=== PATIENT | female | born 1935 | race Caucasian/White ===

== ENCOUNTER 2017-05-14 16:22 | Inpatient (IN) ==
[2017-05-14] MEDS ORDERED: HYDROmorphone 2 MG/1 ML VIAL IV PRN ×2 (17:30→18:32)
[2017-05-14] MEDS ORDERED: SODIUM CHLORIDE 0.9% 500 ML IV STA (17:30)
[2017-05-14] MEDS ORDERED: ONDANSETRON 4 MG/2 ML VIAL IV STA (17:30)
[2017-05-14] MEDS ORDERED: ONDANSETRON 4 MG/2 ML VIAL ONE ×2 (17:42→18:05)
[2017-05-14] MEDS ORDERED: HYDROmorphone 2 MG/1 ML VIAL ONE (17:50)
[2017-05-14] MEDS: ONDANSETRON 4 MG/2 ML VIAL IV PRN ×2 (18:06→20:57)
[2017-05-14 18:12] LABS: Basophils % 0.2 % (0.0-0.8); Eosinophils # 0.1 10*3/uL (0.0-0.87); Eosinophils % 0.3 % (0.00-10.9); Hematocrit 42.3 VOL% (35.7-47.0); Hemoglobin 14.2 GM/DL (12.0-16.0); Immature Granulocytes % 0.6 %; Immature Granulocytes Absolute 0.09 #; Lymphocytes # 0.9 10*3/uL (1.4-4.0); Lymphocytes % 6.3 % (21.3-54.2); Mean Corpuscular HGB Conc 33.6 GM/DL (32-36); Mean Corpuscular Hemoglobin 31 PG (27-34); Mean Corpuscular Volume 91.8 FL (87-102); Mean Platelet Volume 10.1 FL (9.6-12.0); Monocytes # 0.4 10*3/uL (0.11-0.8); Monocytes % 2.6 % (1.7-12.7); Neutrophils # 12.9 10*3/uL (1.4-7.4); Platelet Count 202 T/CUMM (130-400); Red Blood Count 4.61 MC/CUMM (3.8-5.5); Red Cell Distribution Width 12.1 % (9.3-17.3); White Blood Count 14.3 T/CUMM (4-12)
[2017-05-14 18:18] LABS: Apearance,Urine CLEAR (Clear); Bilirubin,Urine Negative (Negative); Blood, Urine Small mg/dL (Negative); Glucose,Urine (UA) Negative (Negative); Ketones,Urine Negative (Negative); Mucus,Urine Occasional /LPF (Occasional); Nitrite,Urine Negative (Negative); Protein,Urine 30 MG/DL; RBC,Urine 2 /HPF (0-4); Urine Color Yellow (Yellow); Urine Specific Gravity 1.011 (1.001-1.035); Urine Urobilinogen < 2.0 EU/DL (0.2-1.0); WBC,Urine 2 /HPF (0-6)
[2017-05-14 18:23] LABS: PT Patient Result 10.7 SECS; Partial Thromboplastin Time 24.7 SECS (0-40)
[2017-05-14] MEDS ORDERED: SODIUM CHLORIDE 0.9% 1,000 ML IV SCH (18:30)
[2017-05-14 18:33] LABS: Albumin 3.6 G/DL (3.4-5.0); Bilirubin,Total 1.1 MG/DL (0.2-1.0); Calcium 8.3 MG/DL (8.5-10.1); Total Protein 6.6 G/DL (6.4-8.3)
[2017-05-14 18:34] LABS: Osmolality,Calculated 283.4 MOS/KG (273-304); Potassium 3.3 MMOL/L (3.5-5.1)
[2017-05-14] MEDS: SODIUM CHLOR 0.9% KCL 40 MEQ 40 MEQ/1,000 ML BAG IV SCH (20:56)
[2017-05-15 04:44] LABS: Basophils % 0.2 % (0.0-0.8); Eosinophils % 0.2 % (0.00-10.9); Hematocrit 41.5 VOL% (35.7-47.0); Hemoglobin 13.4 GM/DL (12.0-16.0); Immature Granulocytes % 0.6 %; Immature Granulocytes Absolute 0.08 #; Lymphocytes # 0.6 10*3/uL (1.4-4.0); Lymphocytes % 4.8 % (21.3-54.2); Mean Corpuscular HGB Conc 32.3 GM/DL (32-36); Mean Corpuscular Hemoglobin 30 PG (27-34); Mean Corpuscular Volume 93.3 FL (87-102); Mean Platelet Volume 10.2 FL (9.6-12.0); Monocytes # 0.3 10*3/uL (0.11-0.8); Monocytes % 2.6 % (1.7-12.7); Neutrophils # 11.9 10*3/uL (1.4-7.4); Neutrophils % 91.6 % (38.7-73.9); Platelet Count 203 T/CUMM (130-400); Red Blood Count 4.45 MC/CUMM (3.8-5.5); Red Cell Distribution Width 12.2 % (9.3-17.3)
[2017-05-15] MEDS: SODIUM CHLOR 0.9% KCL 40 MEQ 40 MEQ/1,000 ML BAG IV SCH ×3 (04:49→23:20)
[2017-05-15 05:09] LABS: Giant Platelets Few; Hypochromasia 1+; Lymphocytes 6 % (20-55); Platelet Estimate Adequate; Segmented Neutrophils 91 % (50-85); Total Cells Counted 100
[2017-05-15 05:15] LABS: Calcium 8.2 MG/DL (8.5-10.1); Potassium 4.7 MMOL/L (3.5-5.1); Risk Ratio 2.03
[2017-05-15] MEDS: PANTOPRAZOLE 40 MG TABLET PO SCH (08:13)
[2017-05-15] MEDS: ONDANSETRON 4 MG/2 ML VIAL IV PRN (11:07)
[2017-05-15] MEDS ORDERED: ACETAMINOPHEN 500 MG TABLET PO ONE (11:59)
[2017-05-15] MEDS ORDERED: ceFAZolin 1,000 MG VIAL ONE (14:09)
[2017-05-15] MEDS ORDERED: ceFAZolin 2,000 MG in PREMIX 1 EACH IV ONE (14:25)
[2017-05-15] MEDS ORDERED: ePHEDrine 50 MG/ML AMP ONE (15:55)
[2017-05-15] MEDS ORDERED: MIDAZOLAM 2 MG/2 ML VIAL ONE (15:57)
[2017-05-15] MEDS ORDERED: PROPOFOL 200 MG/20 ML VIAL IV ONE (15:57)
[2017-05-15] MEDS ORDERED: fentaNYL 100 MCG/2 ML VIAL ONE (15:57)
[2017-05-15] MEDS ORDERED: SODIUM CHLORIDE 0.9% 100 ML IV ONE (15:58)
[2017-05-15] MEDS ORDERED: LACTATED RINGERS 1,000 ML IV ONE (15:58)
[2017-05-15] MEDS ORDERED: SODIUM CHLORIDE 0.9% 250 ML IV ONE (15:58)
[2017-05-15] MEDS: MEROPENEM 1,000 MG in SYRINGE 1 EACH IV SCH (18:06)
[2017-05-15] MEDS: ACETAMINOPHEN 325 MG TABLET PO PRN (18:38)
[2017-05-16] MEDS: MEROPENEM 1,000 MG in SYRINGE 1 EACH IV SCH ×4 (00:34→23:31)
[2017-05-16 05:49] LABS: Basophils % 0.3 % (0.0-0.8); Eosinophils # 0.1 10*3/uL (0.0-0.87); Hematocrit 37.1 VOL% (35.7-47.0); Hemoglobin 12.2 GM/DL (12.0-16.0); Immature Granulocytes % 0.7 %; Immature Granulocytes Absolute 0.07 #; Lymphocytes # 0.6 10*3/uL (1.4-4.0); Lymphocytes % 6.1 % (21.3-54.2); Mean Corpuscular HGB Conc 32.9 GM/DL (32-36); Mean Corpuscular Hemoglobin 30 PG (27-34); Mean Corpuscular Volume 92.5 FL (87-102); Mean Platelet Volume 10.2 FL (9.6-12.0); Monocytes # 0.4 10*3/uL (0.11-0.8); Monocytes % 4.5 % (1.7-12.7); Neutrophils # 8.6 10*3/uL (1.4-7.4); Neutrophils % 87.4 % (38.7-73.9); Platelet Count 149 T/CUMM (130-400); Red Blood Count 4.01 MC/CUMM (3.8-5.5); Red Cell Distribution Width 12.3 % (9.3-17.3); White Blood Count 9.8 T/CUMM (4-12)
[2017-05-16 06:24] LABS: Calcium 8.1 MG/DL (8.5-10.1); Osmolality,Calculated 276.5 MOS/KG (273-304); Potassium 4.6 MMOL/L (3.5-5.1)
[2017-05-16] MEDS ORDERED: LEVOTHYROXINE 50 MCG TABLET PO SCH (07:00)
[2017-05-16] MEDS ORDERED: ASPIRIN EC 81 MG TABLET PO SCH (09:00)
[2017-05-16] MEDS ORDERED: THYROXINE 50 MCG PO SCH (09:00)
[2017-05-16] MEDS ORDERED: ATORVASTATIN 20 MG TABLET PO SCH (09:00)
[2017-05-16] MEDS: SODIUM CHLOR 0.9% KCL 40 MEQ 40 MEQ/1,000 ML BAG IV SCH ×3 (11:20→21:32)
[2017-05-16] MEDS: ASPIRIN EC 81 MG TABLET PO SCH (11:31)
[2017-05-16] MEDS: LEVOTHYROXINE 50 MCG TABLET PO SCH (11:36)
[2017-05-16] MEDS: PANTOPRAZOLE 40 MG TABLET PO SCH (11:36)
[2017-05-16] MEDS: OMEPRAZOLE 20 MG PO SCH (13:00)
[2017-05-16] MEDS: FONDAPARINUX 2.5 MG/0.5 ML SYRINGE SUBCUT SCH (17:45)
[2017-05-17 04:08] LABS: Basophils % 0.4 % (0.0-0.8); Eosinophils # 0.2 10*3/uL (0.0-0.87); Eosinophils % 1.9 % (0.00-10.9); Hematocrit 36.2 VOL% (35.7-47.0); Hemoglobin 12.5 GM/DL (12.0-16.0); Immature Granulocytes % 0.4 %; Immature Granulocytes Absolute 0.04 #; Lymphocytes # 0.9 10*3/uL (1.4-4.0); Lymphocytes % 8.8 % (21.3-54.2); Mean Corpuscular HGB Conc 34.5 GM/DL (32-36); Mean Corpuscular Hemoglobin 31 PG (27-34); Mean Corpuscular Volume 89.4 FL (87-102); Mean Platelet Volume 10.4 FL (9.6-12.0); Monocytes # 0.7 10*3/uL (0.11-0.8); Monocytes % 6.1 % (1.7-12.7); Neutrophils # 8.8 10*3/uL (1.4-7.4); Neutrophils % 82.4 % (38.7-73.9); Platelet Count 154 T/CUMM (130-400); Red Blood Count 4.05 MC/CUMM (3.8-5.5); Red Cell Distribution Width 12.1 % (9.3-17.3); White Blood Count 10.7 T/CUMM (4-12)
[2017-05-17 04:56] LABS: Calcium 8.5 MG/DL (8.5-10.1); Magnesium 1.8 MG/DL (1.8-2.4); Osmolality,Calculated 274.7 MOS/KG (273-304); Potassium 4.4 MMOL/L (3.5-5.1)
[2017-05-17] MEDS: SODIUM CHLOR 0.9% KCL 40 MEQ 40 MEQ/1,000 ML BAG IV SCH ×3 (06:17→19:59)
[2017-05-17] MEDS: LEVOTHYROXINE 50 MCG TABLET PO SCH (07:00)
[2017-05-17] MEDS: MEROPENEM 1,000 MG in SYRINGE 1 EACH IV SCH ×3 (10:15→23:40)
[2017-05-17] MEDS: ASPIRIN EC 81 MG TABLET PO SCH (10:16)
[2017-05-17] MEDS: OMEPRAZOLE 20 MG PO SCH (10:16)
[2017-05-17] MEDS: ATORVASTATIN 20 MG TABLET PO SCH (10:16)
[2017-05-17] MEDS: FONDAPARINUX 2.5 MG/0.5 ML SYRINGE SUBCUT SCH (14:57)
[2017-05-17] MEDS: POLYETHYLENE GLYCOL POWDER 255 GM BOTTLE PO ONE ×2 (18:33→18:38)
[2017-05-17] MEDS: ACETAMINOPHEN 325 MG TABLET PO PRN (19:58)
[2017-05-17] MEDS ORDERED: TEMAZEPAM 15 MG CAPSULE PO ONE (21:30)
[2017-05-18] MEDS: SODIUM CHLOR 0.9% KCL 40 MEQ 40 MEQ/1,000 ML BAG IV SCH ×3 (00:17→12:12)
[2017-05-18] MEDS: LEVOTHYROXINE 50 MCG TABLET PO SCH (06:15)
[2017-05-18] MEDS ORDERED: POLYETHYLENE GLYCOL POWDER 17 GM PACK PO SCH (09:00)
[2017-05-18] MEDS: MEROPENEM 1,000 MG in SYRINGE 1 EACH IV SCH (09:16)
[2017-05-18] MEDS: ACETAMINOPHEN 325 MG TABLET PO PRN (09:31)
[2017-05-18] MEDS ORDERED: BISACODYL 10 MG SUPP RECTAL PRN (09:42)
[2017-05-18] MEDS: ATORVASTATIN 20 MG TABLET PO SCH (10:54)
[2017-05-18] MEDS: ASPIRIN EC 81 MG TABLET PO SCH (10:54)
[2017-05-18] MEDS: OMEPRAZOLE 20 MG PO SCH (10:55)
[2017-05-18] MEDS ORDERED: SODIUM PHOSPHATE ENEMA 133 ML BOTTLE RECTAL ONE (10:58)
[2017-05-18] MEDS ORDERED: SODIUM PHOSPHATE ENEMA 133 ML BOTTLE RECTAL PRN (10:58)
[2017-05-18 11:46] VITALS: BP 159/75
== END 2017-05-18 12:59 | disposition swing bed (61) | DRG 470 ==
LOC: EDUNIT# → N.ED 16:22 → N.EDINP 18:27 → N.3E 19:05
PROVIDERS: ADMIT Internal Medicine; ATTEND Internal Medicine